=== PATIENT | male | born 1960 | race Caucasian/White ===

== ENCOUNTER 2025-06-02 13:34 | Emergency (ER) | payer MEDICAID, SELFPAY ==
[2025-06-02] VITALS (9 sets, daily range): BP systolic 122–172; BP diastolic 70–91; PULSE 82–162; RESP 16–22; TEMP 36.4–36.8; O2SAT 94–100; BMI 34.8
--- NOTE | 2025-06-02 | XR_ITS ---
Examination: AP chest single view TECHNIQUE: Portable AP sitting chest single view Date and time: June 02, 2025 1423 hours INDICATIONS: Diagnosis atrial fibrillation FINDINGS: Mild prominence cardiac contour. No pneumonia or pulmonary edema. Moderate osteopenia. IMPRESSION: No active disease.
[2025-06-02] MEDS: SODIUM CHLORIDE 0.9% 1000 ML 1,000 ML 999 ML IV (15:00)
--- NOTE | 2025-06-02 15:54 | EDNOTE_ITS ---
ED General RME/HPI General Chief complaint: Syncope / Near Syncope Stated complaint: SYNCOPE Arrival date/time: 06/02/25 13:34 RME / HPI RME / HPI narrative: DR. BARNETT MAIN ED EVALUATION: 64-year-old male with past medical history of atrial fibrillation, hypertension, and CAD with one prior stent placement presents to the Emergency Department with lightheadedness and associated nausea and vomiting. Denies chest pain, shortness of breath, or abdominal pain. EMS noted a blood pressure of 150/98 and oxygen saturation of 98% on 2L nasal cannula. Patient reports no recent stress test but is being followed for cardiac care. Related Data Allergies Allergy/AdvReac Type Severity Reaction Status Date / Time No Known Allergies Allergy Verified 06/02/25 16:00 Review of Systems Review of Systems Systems Reviewed: All systems reviewed, normal except as documented Past Medical History Past Medical History Comments PMH COMMENT: Past medical history of atrial fibrillation, hypertension, and CAD with one prior stent placement; no recent stress test but is being followed for cardiac care. ED Exam Narrative Physical exam: Constitutional: Awake, alert, nontoxic, obese, looks uncomfortable HEENT: NC, AT, EOMI Neck: Supple CV: Irregularly irregular, rapid HR at 150 Lungs: CTAB, no w/r/r, no respiratory distress. Abd: Soft, nontender, large abdomen pannus, old bruising scattered Extremities: No deformities, no edema noted Neuro: AAOx3, CN 2-12 GIBL, no acute neuro deficit noted. Skin: Warm, dry, intact Course Course Course Narrative: Patient is signed out to Dr. Piña at 1800 hrs. pending results of labs. If these are unremarkable and patient remains well, would plan on discharge home. Quality Measures none Orders Category Date Time Status XR chest 1V portable Stat Exams 06/02/25 Completed CBC Stat Lab 06/02/25 15:22 Completed Comprehensive Metabolic Panel Stat Lab 06/02/25 15:22 Completed Drug Screen,Urine Stat Lab 06/02/25 16:30 Completed Partial Thromboplastin Time Stat Lab 06/02/25 15:22 Completed Prothrombin Time with INR Stat Lab 06/02/25 15:22 Completed Troponin I Stat Lab 06/02/25 15:22 Completed Urinalysis Stat Lab 06/02/25 16:30 Completed Urine Culture Stat Lab 06/02/25 16:30 Received Sodium Chloride 0.9% 1000 ml [Ns] 1,000 ml Med 06/02/25 17:36 Active IV 999 mls/hr Vital Signs Vital signs: Vital Signs Temperature 97.6 F 06/02/25 14:00 Pulse Rate 151 H 06/02/25 14:00 Respiratory Rate 22 H 06/02/25 14:00 Blood Pressure 122/86 H 06/02/25 14:00 Pulse Oximetry (%) 100 06/02/25 14:00 Oxygen Delivery Method Oxy Mask 06/02/25 14:00 Oxygen Flow Rate 15 06/02/25 14:00 Discharge Plan Problem List Clinical Impression: Atrial fibrillation with RVR MDM Narrative [facility] hospital course: I, Courtney Lyles am scribing for and in the presence of Dr. Barnett. Clinical Information Provided by patient and EMS Medical Records Reviewed [facility] and EMS Meds/Rx Considered, not Ordered None Labs/Rad/Tests considered, not Ordered None Chronic Illness/Social Conditions Add or document further as needed: Past medical history of atrial fibrillation, hypertension, and CAD with one prior stent placement; no recent stress test but is being followed for cardiac care. EKG EKG Interpretation narrative: My interpretation: EKG performed at 1521 hours, sinus rhythm, rate 78, no STEMI Lab Interpretation Labs: see narrative above Imaging Radiology reports / interpretation(s): Procedure(s): XR chest 1V portable Accession Number(s): [id number] cc: Jason Shetty MD; Henrietta Barnett MD~ Examination: AP chest single view TECHNIQUE: Portable AP sitting chest single view Date and time: June 02, 2025 1423 hours INDICATIONS: Diagnosis atrial fibrillation FINDINGS: Mild prominence cardiac contour. No pneumonia or pulmonary edema. Moderate osteopenia. IMPRESSION: No active disease. Dictated By: Jason Shetty MD Medication Administration(s) Medication Administration History Sodium Chloride (Ns) 1,000 mls @ 999 mls/hr IV .Q1H1M ONE Stop: 06/02/25 18:36 Last Infusion: 06/02/25 16:00 Dose: Infused Documented By: Admin: 06/02/25 15:00 Dose: 999 mls/hr Documented By: [email or web address] Diagnosis Differential dx and/or dx ruled out: Orthostatic hypotension, arrhythmia-related cerebral hypoperfusion, and med ication side effect. Most likely dx, and/or detailed dx discussion: Atrial fibrillation with rapid ventricular rate
[2025-06-02 16:17] LABS: Basophils # (Auto) 0.1 Thou/mm3 (0.0-0.2); Basophils % (Auto) 1 % (0-2.5); Eosinophils # (Auto) 0.0 Thou/mm3 (0.0-0.5); Eosinophils % (Auto) 0 % (0-10); Hematocrit 52.2 % (41.0-53.0); Hemoglobin 17.2 g/dL (13.5-16.0); Immature Granulocytes Auto 0.12 Thou/mm3 (0.00-0.00); Lymphocytes # (Auto) 1.6 Thou/mm3 (1.0-4.8); Lymphocytes % (Auto) 13 % (10-50); Mean Corpuscular HGB Conc 33.0 g/dl (31.0-37.0); Mean Corpuscular Hemoglobin 30.1 pg (25.0-35.0); Mean Corpuscular Volume 91 fL (80-100); Monocytes # (Auto) 1.0 Thou/mm3 (0.0-0.8); Monocytes % (Auto) 8 % (0-12); Neutrophils # (Auto) 9.4 Thou/mm3 (1.8-7.7); Neutrophils % (Auto) 77 % (37-80); Nucleated Red Blood Cell # 0.00 Thou/mm3 (0.00-0.00); Nucleated Red Blood Cell % 0 /100 WBC (0); Platelet Count 291 Thou/mm3 (140-440); RDW Standard Deviation 45.1 fL (35.1-43.9); Red Blood Count 5.72 Miln/mm3 (4.50-5.90); White Blood Count 12.2 Thou/mm3 (3.8-10.6)
[2025-06-02 16:31] LABS: INR 1.4 (0.9-1.3); Partial Thromboplastin Time 34.5 Seconds (22.0-36.0); Prothrombin Time 14.6 Seconds (9.0-12.2)
[2025-06-02 16:31] LABS: Collection Type, Urine Clean Catch
[2025-06-02 16:37] LABS: Bilirubin,Urine Negative (Negative); Blood,Urine Negative (Negative); Clarity,Urine Clear (Clear/Hazy); Color,Urine Lt-Yellow (Lt Yel-Yel); Glucose, Urine Negative (Negative); Hyaline Casts,Urine 1 /hpf (0-1); Ketones,Urine Negative (Negative); Leukocyte Esterase,Urine Negative (Negative); Nitrite,Urine Negative (Negative); PH,Urine 5.5 (5.0-7.0); Protein,Urine Trace (Neg - Trace); RBC,Urine < 1 /hpf (0-3); Specific Gravity,Urine 1.008 (1.001-1.035); Squamous Epithelial Cell,Urine < 1 /hpf (0-5); Urobilinogen,Urine Negative mg/dL (0.0-1.0); WBC,Urine 4 /hpf (0-5)
[2025-06-02 17:09] LABS: Amphetamine/Methamp Scrn,U Negative (Negative); Barbiturate Screen,Urine Negative (Negative); Benzodiazepines Screen,Urine Negative (Negative); Benzoylecgonine Screen, Ur Negative (Negative); Fentanyl Screen,Urine Negative (Negative); Opiate Screen,Urine Negative (Negative); THC Screen,Urine Positive (Negative)
[2025-06-02 17:58] LABS: Alanine Aminotransferase 13 U/L (10-49); Albumin, Serum 4.4 gm/dL (3.4-4.8); Albumin/Globulin Ratio 2.2 (1.2-2.2); Alkaline Phosphatase 100 U/L (46-116); Anion Gap 15 (7-16); Aspartate Amino Transferase 23 U/L (0-34); BUN/Creatinine Ratio 4 Ratio (12-20); Bilirubin,Total 1.6 mg/dL (0.3-1.2); Blood Urea Nitrogen < 5 mg/dL (9-23); Calcium 8.9 mg/dL (8.3-10.6); Calcium (Corrected) 8.9 mg/dL (8.5-10.1); Carbon Dioxide 16.5 mMol/L (20.0-31.0); Chloride 112 mMol/L (98-107); Creatinine (Component) 1.3 mg/dL (0.6-1.3); Estimated Creatinine Clearance 72.5 mL/min (>60); Globulin 2.0 gm/dL (2.3-3.5); Glucose 73 mg/dL (74-106); Osmolality,Calculated 281 (275-295); Potassium 3.6 mMol/L (3.4-5.1); Sodium 143 mMol/L (136-145); Total Protein 6.4 gm/dL (5.7-8.2); Troponin I < 0.020 ng/mL (0.0-0.045); eGFR > 60 See Note
--- NOTE | 2025-06-02 18:49 | PC.NURSE ---
DR. BARNETT MADE AWARE THAT PT HR 180 AND SHE REPORTED THAT SHE WILL PUT NEW MEDS IN
--- NOTE | 2025-06-02 18:58 | PC.NURSE ---
PT SELF CONVERTED TO SINUS RHYTHM SO DILTIAZEM WAS NOT GIVEN, DR. BEAN MADE AWARE
--- NOTE | 2025-06-02 19:13 | PD.EDADDENDU ---
Emergency Room Addendum <Lizet Vega - Last Filed: 06/02/25 19:14> Addendum Narrative: 1900: Care assumed from Dr. Mosley (emergency physician). Past medical, surgical, social and family history reviewed. Vitals and home medications reviewed. Results and treatment plan discussed. I will assume the care of the patient at this time and will follow the patient, pending . The following addendum documentation note is intended to reflect any pending information, findings, or radiology results not included in the patient?s initial chart by the previous shift scribe. <Tirso Piña DO - Last Filed: 06/02/25 19:21> Addendum Narrative: 1900: Care assumed from Dr. Mosley (emergency physician). Past medical, surgical, social and family history reviewed. Vitals and home medications reviewed. Results and treatment plan discussed. I will assume the care of the patient at this time and will follow the patient, pending . The following addendum documentation note is intended to reflect any pending information, findings, or radiology results not included in the patient?s initial chart by the previous shift scribe. I reviewed all labs. The only lab of note to be somewhat abnormal was a low CO2 of 16.5. Anion gap was normal. BUN was less than 5. Potassium is normal. Troponin is not elevated. Patient had a single episode of atrial fibrillation with RVR here in the emergency room but it spontaneously resolved. This was after the patient was signed out to me. Patient continues to deny chest pain or shortness of breath. He is currently in normal sinus rhythm. It sounds as if the patient takes amiodarone for rate control at home. He is also anticoagulated. Patient will be discharged in stable condition to follow-up with his doctor. Continue current medications. Return to ER as needed or if condition worsens. The plan given to me by Dr. Mosley was that if there was no marked significant abnormality in labs the plan was to discharge and follow-up with his physician as an outpatient.
[2025-06-02] MEDS: METOPROLOL SUCCINATE XL 25 MG TABCR 50 MG PO (19:33)
== END 2025-06-02 20:39 | disposition home or self-care (01) ==
LOC: SERX 19:57
PROVIDERS: Emergency Provider Family Medicine
DX: I48.91 Unspecified atrial fibrillation (principal); I10 Essential (primary) hypertension; I25.10 Atherosclerotic heart disease of native coronary artery without angina pectoris; Z95.5 Presence of coronary angioplasty implant and graft
CPT/HCPCS: 36415; 71045; 80053; 80307; 81001; 84484; 85025; 85610; 85730; 87086; 99283; J7030; A9270